=== PATIENT | male | born 1940 | race Caucasian/White ===

== ENCOUNTER 2019-11-06 15:03 | Emergency (ER) | payer MEDICARE, SELFPAY ==
[2019-11-06] VITALS (7 sets, daily range): BP systolic 125–188; BP diastolic 53–84; PULSE 77–90; RESP 16–20; TEMP 36.6–36.7; O2SAT 95–98
--- NOTE | ~2019-11-06 | CT_ITS ---
EXAMINATION: CTA brain carotid EXAM DATE: 11/06/2019 16:39 INDICATION: Right arm weakness. Throat cancer. TECHNIQUE: Spiral CTA of the carotid arteries was performed with intravenous injection 100 cc of Omni paque 350. Axial, coronal, sagittal reformatted images reviewed. Additional reformatted images creat ed on dedicated 3-D workstation. NASCET comparable standard used to assess the degree of arterial st enosis. Spiral CT angiogram cerebral arteries performed with the same intravenous injection of contr ast. Source images of the brain CTA transferred to dedicated workstation for 3-D rotational image cre ation. Coronal, sagittal maximum intensity pixel images also reviewed. The dose-length product (DLP ) for this examination was 1211.66 mGy-cm. The exposure was tailored according to patient size, and iterative reconstruction (ASIR) was used as additional dose reduction technique. Correlation is made to noncontrast head CT same date. FINDINGS: There are surgical changes from right-sided radical lymph node dissection, right sternoclei domastoid is resected. The right common carotid artery is diffusely more narrowed than expected, and is slitlike with narrowest diameter measuring 1.4 mm, the wall of the right common carotid artery dif fusely thickened without calcification, probably treatment related change (such as radiation). Stenos is is 60% using right ICA distal to this as reference. There is mild to moderate right carotid bulb p laque with 20% stenosis. On the left there is mild common carotid artery atherosclerosis without stenosis, mild to moderate ca rotid bulb arterial sclerosis without stenosis. The left vertebral artery is dominant. Mild bilateral carotid siphon arterial sclerosis without stenosis. There is no carotid or vertebral basilar arterial dissection or fibromuscular dysplasia. There are no cerebral artery aneurysms. There is symmetric cerebral artery arborization. The sagittal, transverse and sigmoid sinuses enhance normally, no venous sinus thrombosis. Internal cerebral veins also enhan ce normally. There are no areas of abnormal enhancement on the post contrast images. IMPRESSION: 1. No cervical arterial dissection or cerebral artery aneurysm. 2. Right neck radical lymph node dissection with diffusely narrowed common carotid artery and superi mposed slitlike narrowing at 60% stenosis, probably treatment related finding. 3. No cervical lymphadenopathy. Reviewed, dictated and finalized at location A. IMPRESSION: 1. No cervical arterial dissection or cerebral artery aneurysm. 2. Right neck radical lymph node dissection with diffusely narrowed common car otid artery and superimposed slitlike narrowing at 60% stenosis, probably treat ment related finding. 3. No cervical lymphadenopathy.
--- NOTE | ~2019-11-06 | XR_ITS ---
EXAMINATION: XR chest 1V portable EXAM DATE: 11/06/2019 15:37 INDICATION: Decreased use of right arm, right hemiparesis. TECHNIQUE: Portable AP frontal chest x-ray was obtained. Comparison is made to prior examination from 11/08/2015. FINDINGS: Sternotomy wires are present without findings to suggest sternal dehiscence. The cardiomedi astinal silhouette is prominent but magnified on this AP technique. Small pleural effusion. No conflu ent consolidation, pneumothorax or pleural effusion suspected. There are mild bony degenerative swenson es. IMPRESSION: Small pleural effusion. Reviewed, dictated and finalized at location A. IMPRESSION: Small pleural effusion.
--- NOTE | ~2019-11-06 | CT_ITS ---
EXAMINATION: CT brain wo con EXAM DATE: 11/06/2019 15:14 INDICATION: Right arm hemiparesis, difficulty ambulating since 11 a.m. TECHNIQUE: Spiral CT of the head was performed without contrast. Axial, coronal and sagittal images were reviewed. The dose-length product (DLP) for this examination was 605.33 mGy-cm. The exposure w as tailored according to patient size, and iterative reconstruction (ASIR) was used as additional dos e reduction technique. There is no prior study for comparison. FINDINGS: There is no acute intraparenchymal hemorrhage. No evidence of intraparenchymal brain mass lesion. No evidence of acute infarction. Please note that initial head CT has limited sensitivity f or small or acute infarctions. There is mild to moderate periventricular and subcortical hypodensity, nonspecific but probably related to small vessel ischemic disease. There is mild to moderate promi nence of the sulci and ventricles related to cerebral atrophy. There is intracranial carotid arteri osclerosis. There are no extra-axial collections. There is no mass effect or midline shift. Patien t has had bilateral ocular lens surgery. Soft tissue is unremarkable. Right-sided mastoidectomy. Ot herwise left mastoid, imaged portions of sinuses are well aerated. IMPRESSION: 1. No acute intracranial findings. 2. Chronic age related findings. Reviewed, dictated and finalized at location A.
--- NOTE | 2019-11-06 15:09 | ECG_ITS ---
Measurements Intervals [place] Rate: 80 P: 24 KS: 313 QRS: -77 QRSD: 97 T: -33 QT: 373 QTc: 431 Interpretive Statements SINUS RHYTHM WITH FIRST DEGREE AV BLOCK DELAYED PRECORDIAL R/S TRANSITION BORDERLINE T WAVE ABNORMALITY- INFERIOR LEADS ABNORMAL ECG Electronically Signed On 11-06-2019 16:03:29 CDT by Evans Diop D.O.
[2019-11-06 15:24] LABS: Glucose Point of Care 210 (65-105)
[2019-11-06 15:28] LABS: Basophils Absolute Auto 0.1 K/mm3 (0.0-0.1); Basophils Percent Auto 0.4 % (0.2-1.2); Eosinophils Percent Auto 0.3 % (0-4.4); Hematocrit 39.5 % (42.0-52.0); Hemoglobin 12.6 g/dL (14.0-18.0); Immature Granulocyte Absolute 0.13 K/mm3 (0.00-0.031); Immature Granulocyte Percent A 0.9 % (0-0.5); Lymphocytes Absolute Auto 1.43 K/mm3 (0.9-3.2); Lymphocytes Percent Auto 9.7 % (18.3-44.2); Mean Corpuscular HGB Conc 31.9 g/dl (32-36); Mean Corpuscular Hemoglobin 29.2 pg (26-34); Mean Corpuscular Volume 91.6 fl (80-100); Mean Platelet Volume 10.8 fl (7.4-10.4); Monocytes Absolute Auto 0.8 K/mm3 (0.1-0.6); Monocytes Percent Auto 5.2 % (2.6-8.5); Neutrophils Absolute Auto 12.3 K/mm3 (1.3-6.7); Neutrophils Percent Auto 83.5 % (45.5-73.1); Platelet Count Result 280 k/mm3 (150-375); Red Blood Count 4.31 M/mm3 (4.6-6.20); Red Cell Distribution Width 13.5 % (11.5-14.5); White Blood Count 14.7 K/mm3 (4.5-10.0)
--- NOTE | 2019-11-06 15:35 | PC.NURSE ---
EKG COMPLETED, PER ERP WILLIS SHE DOES NOT LIKE THAT THE WORDING ON THE EKG STATES ACUTE RI BECAUSE SHE DOESN'T LIKE THOSE WORDS. ERP DEMANDED THE EKG BE REPEATED AND PRINTED WITHOUT THAT VERBIAGE. SECOND EKG COMPLETE. PRODUCT SAFETY PROFESSIONAL MARIA DEL ROSARIO AWARE OF SITUATION. ERP STATES THAT SHE THINKS THAT THE EKG READ THAT WAY DUE TO LEAD PLACEMENT.
[2019-11-06 15:39] LABS: Partial Thromboplastin Time 31.5 SECONDS (22.3-36.8)
[2019-11-06 15:41] LABS: Blood Urea Nitrogen 25 mg/dL (9-20); Calcium 9.7 mg/dL (8.4-10.2); Carbon Dioxide 26 mmol/L (22-30); Chloride 102 mmol/L (98-107); Estimated CRCL calculation 49 ml/min; Estimated Glomerular Filt Rate 59; Glucose 222 mg/dL (75-110); Potassium 4.8 mmol/L (3.4-5.0); Sodium 137 mmol/L (137-145)
[2019-11-06] MEDS: ASPIRIN 81 MG CHEWABLE TABLET 324 MG PO (15:51)
--- NOTE | 2019-11-06 15:53 | ED.NEUROSD ---
HPI - Neuro Symptoms/Deficit General Chief Complaint: Neuro Symptoms/Deficit Stated Complaint: decreased right arm movement Time Seen by Provider: 11/06/19 15:32 History of Present Illness HPI Narrative: Patient presents with his from home, for right arm tingling coldness and weakness. Started at 11 AM. He has no history of stroke. But he does have hypertension and diabetes.. His said that he has been agitated since this morning, very unsettled, and quite anxious, which is unusual for him. He has not been sick in the last week or 2. He does not smoke drink or do drugs. He is doctors are at [facility] in [place], and his would like him transferred there. Onset (ago): hour(s) Last Observed Normal: 11:00 Timing confirmed by: spouse Location: right arm History of same: No Severity: moderate Quality: weak, numb, tingling and other (Feels cold) Relieving factors: none Exacerbating factors: none Context: gradual onset On Anticoagulants: No Associated symptoms: other (His says anxiety, and off balance.) Treatments Prior to Arrival: none Related Data Home Medications Medication Instructions Recorded Confirmed amlodipine 11/06/19 11/06/19 ezetimibe mg 11/06/19 insulin detemir U-100 [Levemir unit SUBCUT 11/06/19 FlexTouch U-100 Insuln] linagliptin [Tradjenta] mg 11/06/19 lisinopril-hydrochlorothiazide tablet 11/06/19 metformin mg 11/06/19 metoprolol tartrate 11/06/19 trazodone 11/06/19 Allergies Allergy/AdvReac Type Severity Reaction Status Date / Time No Known Allergies Allergy Unverified 11/08/15 18:11 Review of Systems Review of Systems: Narrative: CONSTITUTIONAL: Denies fever, chills, or sweats. EYES: Denies visual changes, redness, or discharge. ENT: Denies rhinorrhea, congestion, sore throat, or otalgia. CARDIOVASCULAR: Denies chest pain, palpitations, or edema. RESPIRATORY: Denies cough or dyspnea. GASTROINTESTINAL: Denies abdominal pain, nausea, vomiting, or diarrhea. GENITOURINARY: Denies dysuria or hematuria. SKIN: Denies rash or itching. MUSCULOSKELETAL: Denies back pain, joint pain, or myalgia. NEUROLOGIC: Denies headache PSYCHIATRIC: Denies anxiety or depression. [facility] Social History Social History (Updated 11/06/19 @ 15:57 by Linda Ross MD) Smoking status: Never smoker Alcohol intake: never Substance use: never Exam Narrative: Exam Narrative: GENERAL: Well-appearing, well-nourished, and in no acute distress, overweight HEAD: Normocephalic, atraumatic. EYES: PERRLA and EOMI. ENT: Nares clear, no rhinorrhea or epistaxis. Mucous membranes moist. NECK: Supple. Large defect on the right from previous surgery. CHEST: Clear to auscultation. No respiratory distress. HEART: Regular rate and rhythm. No murmur heard. Normal peripheral pulses. ABDOMEN: Soft, nontender, nondistended, normal active bowel sounds. EXTREMITIES: Normal range of motion. No edema. SKIN: Warm, dry, no rash. NEURO: Initially there was no drift on the right arm, but 20 minutes later there was small drift. alert and oriented x3. PSYCH: Flat affect, very worried. Course Course Emergency Course: Will call the [facility] access line for transfer to the neurology stroke team.Linda Ross [id number] Reevaluation(s) Reevaluation #1: Went in to talk to the patient and his about the CTA. I explained that he has some narrowing in his right carotid artery. She said that was evaluated 19 years ago after he had his cancer treatment, and that it was patent. I suggested we have it reevaluated and she agrees. She still wants him transferred to [facility]. He has had his aspirin and his arm strength and sensation are improving. He says he just has an unusual sensation when he touches his arm to the bedside rail. Date: 11/06/19 Time: 17:38 Consultations Consultation #1: is called her personal friend who works at [facility] who happens to be a physician there, to arrang
[2019-11-06 15:57] LABS: Troponin I 0.093 ng/mL (0.000-0.034)
--- NOTE | 2019-11-06 16:25 | PC.NURSE ---
Pt to CT for CTA.
[2019-11-06 17:52] LABS: NT Pro B Type Natriuretic Pept 579 PG/ML (5-100)
--- NOTE | 2019-11-06 20:40 | PC.NURSE ---
Called [facility] to transport patient to [facility]. José declined.
--- NOTE | 2019-11-06 20:46 | PC.NURSE ---
Called [facility] to transport patient. ETA [phone]
--- NOTE | 2019-11-06 21:20 | PC.NURSE ---
[facility] called to update ETA to [phone]
--- NOTE | 2019-11-06 21:29 | PC.NURSE ---
Called [facility] to request transport. [facility] accepted
== END 2019-11-06 22:12 | disposition short-term general hospital (02) ==
PROVIDERS: Emergency Provider Emergency Medicine
DX: G45.9 Transient cerebral ischemic attack, unspecified (principal); R53.1 Weakness; I10 Essential (primary) hypertension; E11.65 Type 2 diabetes mellitus with hyperglycemia; Z79.84 Long term (current) use of oral hypoglycemic drugs; I44.0 Atrioventricular block, first degree
CPT/HCPCS: 36415; 70450; 70496; 70498; 71045; 80048; 82948; 83880; 84484; 85025; 85610; 85730; 93005; 99285; A9270; Q9967

== ENCOUNTER 2019-11-14 11:53 | Emergency (ER) | payer MEDICARE, SELFPAY ==
--- NOTE | ~2019-11-14 | XR_ITS ---
EXAMINATION: XR chest 1V portable DATE: 11/14/2019 12:36 INDICATION: Stroke TECHNIQUE: frontal view of the chest was obtained. COMPARISON: Chest radiograph dated 11/06/2019 FINDINGS: Unchanged linear atelectasis/scarring at the lateral left midlung zone. No new airspace opacities, pu lmonary edema, pleural effusion or pneumothorax. The cardiomediastinal silhouette is normal. Median s ternotomy wires and mediastinal surgical clips are seen, likely from prior coronary artery bypass gra fting. Electronic device likely external to the patient projects over the left hilum. IMPRESSION: 1. Unchanged mild likely/scarring at the lateral left midlung zone. No acute cardiopulmonary disease. Reviewed, dictated and finalized at location A. IMPRESSION: 1. Unchanged mild likely/scarring at the lateral left midlung zone. No acute ca rdiopulmonary disease.
--- NOTE | ~2019-11-14 | CT_ITS ---
EXAMINATION: CT brain wo con DATE: 11/14/2019 12:03 INDICATION: Blurred vision, headache, difficulty walking. Stroke 1 week ago. TECHNIQUE: Computed tomography (CT) of the head was performed without intravenous contrast. The mA wa s adjusted according to patient size. Iterative reconstruction technique was employed. Exam dose: 60 5.33 mGy-cm total exam DLP. COMPARISON: 11/06/2019 CTA brain carotid 11/06/2019 CT brain FINDINGS: There are bilateral vertebral and internal carotid artery calcifications. There is nonspeci fic diminished attenuation of the cerebral white matter, likely due to chronic small vessel ischemic changes. No intracranial mass lesion or hemorrhage is evident. No midline shift or mass effects. No cerebrovas cular accident is evident, but CT is not sensitive for detection of hyperacute ischemic cerebrovascul ar accident. There is moderate cerebral volume loss. No subdural or epidural hematoma is detected. No orbital mass lesion. No fracture or bone destruction of the cranial vault. Status post right mastoidectomy. The left mastoid air cells are normally developed and aerated. Inclu ded paranasal sinuses are unremarkable. IMPRESSION: Cerebral atherosclerosis and chronic small vessel ischemic changes of the cerebral white matter No acute intracranial finding Dr. Camilo telephoned the report to Dr. Rachel in the emergency room on 11/14/2019 at 1209 hours Reviewed, dictated and finalized at Location A. Reviewed, dictated and finalized at location A. IMPRESSION: Cerebral atherosclerosis and chronic small vessel ischemic changes of the cerebral white matter No acute intracranial finding Dr. Camilo telephoned the report to Dr. Rachel in the emergency room on 0 at 1209 hours
--- NOTE | 2019-11-14 11:57 | ECG_ITS ---
Measurements Intervals [place] Rate: 105 P: [place]: 0 QRS: -3 QRSD: 101 T: 26 QT: 340 QTc: 451 Interpretive Statements SINUS RHYTHM WITH FIRST DEGREE AV BLOCK FREQUENT VENTRICULAR PREMATURE COMPLEXES DELAYED PRECORDIAL R/S TRANSITION BASELINE ARTIFACT- I, III, AVR, AVL, AVF ABNORMAL ECG Electronically Signed On 11-15-2019 9:59:22 CDT by Evans Diop D.O.
[2019-11-14 12:08] LABS: Glucose Point of Care 166 (65-105)
[2019-11-14 12:14] VITALS: BP 185/80; PULSE 95; RESP 19; TEMP 36.8; O2SAT 88
[2019-11-14] MEDS: ONDANSETRON INJ 4 MG/2 ML VIAL IV PUSH (12:25)
[2019-11-14] MEDS: SODIUM CHLORIDE 0.9% IV 1,000 ML 999 ML IV CONT (12:25)
[2019-11-14] MEDS: MECLIZINE HCL 25 MG TABLET PO (12:44)
[2019-11-14 12:47] VITALS: BP 160/75; PULSE 95; RESP 20; O2SAT 94
[2019-11-14 12:48] LABS: Basophils Absolute Auto 0.1 K/mm3 (0.0-0.1); Basophils Percent Auto 0.5 % (0.2-1.2); Eosinophils Absolute Auto 0.1 K/mm3 (0-0.3); Eosinophils Percent Auto 0.5 % (0-4.4); Hematocrit 38.7 % (42.0-52.0); Hemoglobin 12.5 g/dL (14.0-18.0); Immature Granulocyte Absolute 0.19 K/mm3 (0.00-0.031); Immature Granulocyte Percent A 1.1 % (0-0.5); Lymphocytes Absolute Auto 2.08 K/mm3 (0.9-3.2); Lymphocytes Percent Auto 12.5 % (18.3-44.2); Mean Corpuscular HGB Conc 32.3 g/dl (32-36); Mean Corpuscular Hemoglobin 28.6 pg (26-34); Mean Corpuscular Volume 88.6 fl (80-100); Mean Platelet Volume 11.1 fl (7.4-10.4); Monocytes Absolute Auto 0.7 K/mm3 (0.1-0.6); Monocytes Percent Auto 4.1 % (2.6-8.5); Neutrophils Absolute Auto 13.5 K/mm3 (1.3-6.7); Neutrophils Percent Auto 81.3 % (45.5-73.1); Platelet Count Result 353 k/mm3 (150-375); Red Blood Count 4.37 M/mm3 (4.6-6.20); Red Cell Distribution Width 13.3 % (11.5-14.5); White Blood Count 16.7 K/mm3 (4.5-10.0)
--- NOTE | 2019-11-14 12:48 | ED.NEUROSD ---
HPI - Neuro Symptoms/Deficit General Chief Complaint: Suspected CVA Stated Complaint: ?cva Time Seen by Provider: 11/14/19 12:04 History of Present Illness HPI Narrative: Patient is a 79-year-old male who presents the ER with concerns for possible CVA. The last hour patient has been having visual changes where he reports it looks like everything is just jerking around. Occasional double vision. Associated with extreme nausea and some vomiting. Reports he is very dizzy and has difficulty ambulating because of this dizziness. Patient recently was diagnosed with an acute CVA and was at [facility] receiving care. Patient did not receive lytics. He was started on Eliquis. Related Data Home Medications Medication Instructions Recorded Confirmed amlodipine 11/06/19 11/06/19 ezetimibe mg 11/06/19 insulin detemir U-100 [Levemir unit SUBCUT 11/06/19 FlexTouch U-100 Insuln] linagliptin [Tradjenta] mg 11/06/19 lisinopril-hydrochlorothiazide tablet 11/06/19 metformin mg 11/06/19 metoprolol tartrate 11/06/19 apixaban mg 11/14/19 11/14/19 aspirin [Adult Aspirin Regimen] 11/14/19 nitroglycerin [Nitrostat] mg 11/14/19 omeprazole 11/14/19 Allergies Allergy/AdvReac Type Severity Reaction Status Date / Time Gamjpxm-[id number]-Zyc Reductase AdvReac Joint Pain Verified 11/14/19 12:48 Inhibitor Review of Systems Review of Systems: All systems reviewed & are unremarkable except as noted in HPI and below Constitutional: Constitutional: Denies chills, Denies fever(s) and Denies weakness Eyes: Eyes: Reports change in vision ENT: Reports dizziness, Denies nasal congestion and Denies sore throat Cardiovascular: Cardiovascular: Denies chest pain and Denies radiating jaw, neck or arm pain Respiratory: Respiratory: Denies chest congestion, Denies cough and Denies dyspnea Gastrointestinal: Gastrointestinal: Denies abdominal pain, Denies nausea and Denies vomiting [facility] Past Medical History Medical History (Updated 11/14/19 @ 16:32 by Abilio Rachel MD) Atrial fibrillation CVA (cerebral vascular accident) Diabetes Hypertension Surgical History Surgical History (Updated 11/14/19 @ 12:55 by Abilio Rachel MD) H/O hemorrhoidectomy H/O neck surgery Social History Social History (Updated 11/06/19 @ 15:57 by Linda Ross MD) Smoking status: Never smoker Alcohol intake: never Substance use: never Gender identity (if verbalized by the patient): Male Exam Narrative: Exam Narrative: GENERAL: Uncomfortable-appearing, well-nourished, and in mild distress. HEAD: Normocephalic, atraumatic. EYES: PERRL and EOMI. Nystagmus when returning to midline from the left. ENT: Mucous membranes moist. TM's normal bilaterally. CHEST: Clear to auscultation. No respiratory distress. HEART: Regular rate and rhythm. Normal peripheral pulses. ABDOMEN: Soft, nontender, nondistended. EXTREMITIES: Normal range of motion. No edema. SKIN: Warm, dry, no rash. NEURO: No focal deficits. Alert and oriented x3. Crainial nerves II through XII intact. Clear speech without expressive aphasia. Mild RUE pronation, no difficulty with finger to nose/heel to thompson. Course Course Emergency Course: Discussed with Dr. Winston with stroke team at [facility], the will accept patient to [facility]. Pt will be admitted by Dr. Mena. Vital Signs Vital signs: Vital Signs Temperature 98.3 F 11/14/19 12:14 Pulse Rate 95 11/14/19 12:14 Respiratory Rate 19 11/14/19 12:14 Blood Pressure 185/80 H 11/14/19 12:14 Pulse Oximetry 88 L 11/14/19 12:14 Temperature 98 F 11/14/19 17:55 Pulse Rate 99 11/14/19 17:55 Respiratory Rate 22 H 11/14/19 17:55 Blood Pressure 144/66 H 11/14/19 17:55 Pulse Oximetry 96 11/14/19 17:55 MDM - Neuro Symptoms/Deficit Lab Data Result diagrams: 11/14/19 12:39 11/14/19 12:39 Labs: Lab Results 11/14/19 11/14/19 11/14/19 Range/Units 12:06 12:39 12:
[2019-11-14 12:53] VITALS: BP 160/75; PULSE 95; RESP 21; O2SAT 94
[2019-11-14 12:57] LABS: Blood Urea Nitrogen 28 mg/dL (9-20); Calcium 9.6 mg/dL (8.4-10.2); Carbon Dioxide 26 mmol/L (22-30); Chloride 100 mmol/L (98-107); Estimated CRCL calculation 48 ml/min; Estimated Glomerular Filt Rate 59; Glucose 186 mg/dL (75-110); Potassium 4.4 mmol/L (3.4-5.0); Sodium 138 mmol/L (137-145)
[2019-11-14 12:59] LABS: INR 1.2; Prothrombin Time 14.4 Seconds (11.1-14.7)
[2019-11-14 13:00] LABS: Partial Thromboplastin Time 36.8 SECONDS (22.3-36.8)
[2019-11-14 13:09] LABS: Troponin I 0.026 ng/mL (0.000-0.034)
[2019-11-14 14:59] VITALS: BP 120/66; PULSE 100; RESP 21; TEMP 36.6; O2SAT 93
--- NOTE | 2019-11-14 15:26 | PC.NURSE ---
weaned 02 from 2L to 1L, oxygen saturation 92%. pt states his vision is improved but still diplopic at times.
[2019-11-14 15:37] VITALS: BP 142/70; PULSE 102; RESP 23; O2SAT 92
--- NOTE | 2019-11-14 16:21 | PC.NURSE ---
RN attempted to ambulate patient. Pt was dizzy while sitting on the side of the bed and became light headed while standing. Unable to ambulate at this time. notified.
[2019-11-14 17:55] VITALS: BP 144/66; PULSE 99; RESP 22; TEMP 36.6; O2SAT 96
== END 2019-11-14 18:12 | disposition short-term general hospital (02) ==
PROVIDERS: Emergency Provider Emergency Medicine
DX: R42 Dizziness and giddiness (principal); I48.91 Unspecified atrial fibrillation; E11.9 Type 2 diabetes mellitus without complications; I10 Essential (primary) hypertension; Z86.73 Personal history of transient ischemic attack (TIA), and cerebral infarction without residual deficits; Z79.01 Long term (current) use of anticoagulants; Z79.82 Long term (current) use of aspirin; I44.0 Atrioventricular block, first degree; I49.3 Ventricular premature depolarization; R94.31 Abnormal electrocardiogram [ECG] [EKG]; Z79.4 Long term (current) use of insulin; Z79.84 Long term (current) use of oral hypoglycemic drugs
CPT/HCPCS: 36415; 70450; 71045; 80048; 82948; 84484; 85025; 85610; 85730; 93005; 96361; 96374; 96375; 99285; A9270; J2405; J3360; J7030

== ENCOUNTER 2022-04-18 16:43 | Emergency (ER) | payer MEDICARE, SELFPAY ==
--- NOTE | 2022-04-18 16:46 | ED.EPISTAXIS ---
HPI - Epistaxis General Chief complaint: Epistaxis Stated complaint: NOSEBLEED Time Seen by Provider: 04/18/22 16:46 Source: patient, family, RN notes reviewed and old records reviewed Mode of arrival: ambulatory Limitations: no limitations History of Present Illness HPI Narrative: 81-year-old male on who is on a blood thinner and aspirin presents to the [facility] with complaints of a nosebleed. Bleeding is controlled/stopped on in triage. Patient uses Flonase. Patient reports that on Tuesday he had a bloody nose. Then had another 1 this morning and it restarted this afternoon, always the left nostril. Patient is also diabetic, HX of stroke. on Eliqus. Related Data Home Medications Medication Instructions Recorded Confirmed amlodipine 5 mg tablet 11/06/19 11/06/19 ezetimibe 10 mg tablet mg 11/06/19 insulin detemir U-100 100 unit/mL unit subcut 11/06/19 (3 mL) subcutaneous pen (Levemir FlexTouch U-100 Insulin) linagliptin 5 mg tablet (Tradjenta) mg 11/06/19 lisinopril 20 tablet 11/06/19 mg-hydrochlorothiazide 12.5 mg tablet metformin 1,000 mg tablet mg 11/06/19 metoprolol tartrate 50 mg tablet 11/06/19 apixaban 5 mg tablet mg 11/14/19 11/14/19 aspirin 81 mg tablet,delayed 11/14/19 release (Adult Aspirin Regimen) nitroglycerin 0.4 mg sublingual mg 11/14/19 tablet (Nitrostat) omeprazole 20 mg capsule,delayed 11/14/19 release fluticasone propionate 50 intranasal 04/18/22 mcg/actuation nasal spray,suspension hydralazine 10 mg tablet mg 04/18/22 Allergies Allergy/AdvReac Type Severity Reaction Status Date / Time Ytekpvu-IFF-ToF Reductase AdvReac Joint Pain Verified 04/18/22 16:52 Inhibitor [Xjsfwes-Pkh-Rap Reductase Inhibitor] Review of Systems Review of Systems: All systems reviewed & are unremarkable except as noted in HPI and below Constitutional: Constitutional: Reports no additional constitutional complaints, Denies chills and Denies fever(s) Eyes: Eyes: Reports no additional eye complaints ENT: Reports as per HPI and Reports epistaxis Cardiovascular: Cardiovascular: Reports no additional cardiovascular complaints Respiratory: Respiratory: Reports no additional respiratory complaints Gastrointestinal: Gastrointestinal: Reports no additional gastrointestinal complaints Musculoskeletal: Musculoskeletal: Reports no additional musculoskeletal complaints Integumentary/Breasts: Skin/Breast: Reports system reviewed and no additional complaints, except as docu Neurologic: Reports system reviewed and no additional complaints, except as documented Psychiatric: Psychiatric: Reports no additional psychiatric complaints Allergic/Immunologic: Allergic/Immunologic: Reports no additional allergic/immunologic complaints PMFSH Past Medical History Medical History Atrial fibrillation CVA (cerebral vascular accident) Diabetes Hypertension Surgical History Surgical History H/O hemorrhoidectomy H/O neck surgery Social History Social History Smoking status: Never smoker Alcohol intake: never Substance use: never Gender identity (if verbalized by the patient): Male Comments At the time of my signature, I reviewed and agree with the nursing past medical, surgical, social, and family history. There is no relevant family history pertinent to the patient complaint. Exam Const: General: healthy appearing, no acute distress, alert and well nourished Nutritional Appearance: well nourished Orientation/consciousness: patient oriented x3 Limitations: no limitations HENMT: Head: normal to inspection Ears: external ears normal, TM's normal bilaterally and EAC's normal Face/Nose/Sinus: Normal external nose present and Nasal discharge present bloody on the left (Dried) Face and sinus: normal f
[2022-04-18 16:49] VITALS: BP 159/77; PULSE 86; RESP 16; TEMP 37; O2SAT 95
== END 2022-04-18 17:03 | disposition home or self-care (01) ==
PROVIDERS: Emergency Provider Nurse Practitioner; PCP Family Medicine
DX: R04.0 Epistaxis (principal); I48.91 Unspecified atrial fibrillation; E11.9 Type 2 diabetes mellitus without complications; I10 Essential (primary) hypertension; Z86.73 Personal history of transient ischemic attack (TIA), and cerebral infarction without residual deficits
CPT/HCPCS: 99211; G0463